=== PATIENT | female | born 1955 | race African-American/Black ===

== ENCOUNTER 2016-10-13 09:59 | Emergency (ER) | payer BC ==
[2016-10-13 10:14] VITALS: BMI 34.9
--- NOTE | 2016-10-13 10:34 | EDPRACDOC ---
ED Seizure HPI - General Information Chief Complaint: Seizure Stated Complaint: HEADACHE/LIP SWELLING Time Seen by Provider: 10/13/16 10:26 Information Source: Patient Mode Of Arrival: Car Home Medications: Home Medications Folic Acid 1 mg PO DAILY 07/04/13 Levetiracetam [Keppra] 500 mg PO BID 07/04/13 Telmisartan/Hydrochlorothiazid [Micardis Hct 40-12.5 mg Tablet] 1 tab PO DAILY 07/04/13 Methotrexate Sodium [Methotrexate] 15 mg PO PERKINS 10/13/16 Allergies/Adverse Reactions: Allergies Allergy/AdvReac Type Severity Reaction Status Date / Time No Known Allergies Allergy Verified 10/13/16 10:10 - History of Present Illness Onset: this am HPI: PT STATES SHE WOKE UP THIS MORNING WITH A FRONTAL, THROBBING HEADACHE AND SWOLLEN AND BRUISED BOTTOM LIP, PT STATES SHE THINKS SHE HAD A SEIZURE DURING THE NIGHT, PT HAS HX OF SEIZURES, HAS NOT TAKEN HER KEPPRA THIS WEEK. PT DENIES OTHER COMPLAINTS. Witnessed: UNKNOWN Postictal: No Episodes: Reports: single episode today Compliant with Seizure Medication: No Seizure Trigger: Reports: Unknown Prior to Seizure: Reports: Normal Arousable To: Reports: Name Immediately After Seizure: Reports: Headache Relevant History of: Reports: None Associated Signs & Symptoms: Reports: Headache - [place] Coma scale Coma Scale Eye Opening: Spontaneous Coma Scale Motor: Obeys Commands Coma Scale Verbal: Oriented Coma Scale Total: 15 ED Past Medical History - History Reviewed Yes Nurses notes reviewed and agree except as marked - Patient Medical History Neurological History: Reports: Seizures. Denies: Cerebrovascular Accident, Dementia Cardiac History: Reports: Atrial Fibrillation, Hypertension. Denies: Congestive Heart Failure, Heart Attack, Hypercholesterolemia Respiratory History: Denies: Asthma, COPD, Emphysema GI/ History: Denies: Gastroesophageal Reflux Musculoskeletal History: Reports: Rheumatoid Arthritis Systemic History: Denies: Cancer, Diabetes - Social Medical History Smoking Status: Never smoker ETOH: None Substance Abuse: None EDM Review of Systems - Review of Systems Constitutional: negative: Chills, Fever Eyes: negative: Blurred Vision, Double Vision Ears: negative: Drainage Throat: negative: Pain Nose: negative: Bleeding Mouth: negative: Pain Respiratory: negative: Cough, Shortness of Breath, Wheezing Cardiovascular: negative: Chest Pain, Palpitations Gastrointestinal: negative: Diarrhea, Nausea, Pain, Vomiting Genitourinary: negative: Dysuria, Frequency Neurological: Headache, Seizure. negative: Dizziness, Numbness, Weakness Musculoskeletal: No Symptoms Reported Integumentary: No Symptoms Reported - Physical Exam Constitutional: Alert (Awake), No apparent distress Oriented to: Time, Person, Place Last recorded Vital Signs: Last Vital Signs Temp 99.3 F 10/13/16 10:10 Pulse 86 10/13/16 10:26 Resp 18 10/13/16 10:26 BP 195/88 H 10/13/16 10:26 Pulse Ox 99 10/13/16 10:26 Oxygen Pulse Oxygen Saturation 99 O2 Device Room Air Oxygen Flow Rate Fraction of Inspired Oxygen ( FIO2) - HEENT Head: Normal ( normocephalic) Eye Exam: Normal (PERRL, EOMI, Sclera white) Oropharynx: Other (BOTTOM LIP SWOLLEN, BRUISED, BITE WOUNDS NOTED INSIDE BOTTOM LIP) Tympanic Membrane: Normal ENT EAC: Normal TMJ: Normal Nose: No Symptoms Reported (septum midline) Neck: Normal (FROM, trachea at midline) - Respiratory/Cardiovascular Respiratory: Normal - CTA (BBS clear to auscultation without adventitious sounds ) Cardiovascular: Normal (RRR without murmur, gallop or rub) - GI Auscultation: Normal (NABS) Palpation: Normal (Soft,No rebound or guarding, non distended) Tenderness: Non tender Raphael's Sign: Negative - Musculoskeletal Back: Normal (Non-Tender) Extremities: Normal (Normal tone, Pulses 2+ No cyanosis or edema, FROM) - Integumentary Skin: Normal, Warm, Dry Lymphatics: Normal (no adenopathy) - Neurologic Memory Impaired: Normal Motor Function: Normal (Normal tone, Pulses 2+ No cyanosis or edema, FROM) Cranial Nerve: Normal (CN II-X11 intact sensation, strength 5/5) Cerebellar: Normal Mood Description: Normal Perception: Normal - Differential Diagnosis Anticonvulsant Withdrawal, Hyponatremia, Seizure - Re-evaluation Re-evaluation 1 Re-evaluation Time: 13:03 (NO COMPLAINTS, NO SEIZURE IN ED) - Results 10/13/16 11:26 10/13/16 11:26 10/13/16 13:02 Laboratory Results - last 24 hr 10/13/16 10/13/16 10/13/16 10:48 11:26 11:26 WBC 6.7 RBC 4.10 L Hgb 12.0 Hct 36.8 MCV 90 MCH 29.3 MCHC 32.6 L RDW 15.2 H Plt Count 348 MPV 8.2 Neut % (Auto) 80.7 H Lymph % (Auto) 15.6 L [place] % (Auto) 2.8 L Eos % (Auto) 0.3 Baso % (Auto) 0.6 Absolute Neuts (auto) 5.36 Absolute Lymphs (auto) 1.01 Sodium 139 Potassium 4.0 Chloride 101 Carbon Dioxide 28 Anion Gap 14 BUN 13 Creatinine 0.80 Estimated GFR (MDRD) > 60 Glucose 95 Calculated Osmolality 268 L Calcium 9.8 Total Bilirubin 0.7 AST 36 ALT 34 Alkaline Phosphatase 111 Total Protein 8.1 Albumin 4.2 Urine Color Yellow Urine Clarity Clear Urine pH 7.0 Ur Specific [place] 1.010 Urine Protein Neg Urine Glucose (UA) Neg Urine Ketones Neg Urine Occult Blood Neg Urine Nitrite Neg Urine Bilirubin Neg Urine Urobilinogen <2.0 Ur Leukocyte Esterase Neg Urine RBC 0-2 Urine WBC 0-2 Ur Epithelial Cells Occ Urine Bacteria Few Urine Mucus Sm amt Decision Time to Discharge: 13:04 - Departure Disposition: Home Condition: Stable Final Diagnosis: Seizure disorder, Noncompliance with medication regimen Instructions: Seizures Education/Counseling Given To: Patient Education/Counseling Given Regarding: Diagnosis, Treatment, Prognosis, Follow Up Referrals: Jahaira Ramires PA [Primary Care Provider] - One Week Additional Instructions: PLEASE TAKE ALL OF YOUR MEDICATIONS PRESCRIBED, RETURN TO THE ED FOR ANY WORSENING SYMPTOMS OR CONCERNS.
[2016-10-13] MEDS ORDERED: KETOROLAC TROMETH 30 MG/ML VIAL IV ONE (10:35)
[2016-10-13] MEDS ORDERED: SODIUM CHLORIDE 0.9% 10 ML FLUSH FLUSH PRN (10:35)
[2016-10-13 11:33] LABS: AUTOMATED BASOPHIL 0.6 % (0-2); AUTOMATED EOSINOPHIL 0.3 % (0-5); AUTOMATED LYMPH 15.6 % (17-44); AUTOMATED MONOCYTE 2.8 % (3-10); AUTOMATED NEUTROPHIL 80.7 % (45-76); MPV 8.2 fL (7.4-10.4)
[2016-10-13 11:44] LABS: LEUKOCYTES/URINE NEG (NEGATIVE); NITRITE/URINE NEG (NEGATIVE); RBC/URINE 0-2 (0-5); URINE OCCULT BLOOD NEG (NEG/TRACE); WBC/URINE 0-2 (0-5)
[2016-10-13 11:56] LABS: BLOOD UREA NITROGEN 13 MG/DL (7-17); CALCIUM 9.8 MG/DL (8.4-10.2); CALCULATED OSMOLALITY 268 MOs/Kg (270-290); CHLORIDE 101 mEq/L (98-107); GLUCOSE 95 MG/DL (70-99); SODIUM LEVEL 139 mEq/L (137-146); TOTAL PROTEIN 8.1 G/DL (6.3-8.2)
[2016-10-13 12:55] VITALS: BP 196/84; PULSE 82; TEMP 98.9
== END 2016-10-13 13:24 | disposition home or self-care (01) ==
LOC: ED 09:59
DX: R56.9 Unspecified convulsions (principal); Z91.14 Patient's other noncompliance with medication regimen
CPT/HCPCS: 36415; 80053; 81001; 85025; 96374; 99283; J1885